=== PATIENT | male | born 1985 | race Asian ===

== ENCOUNTER 2020-04-09 08:43 | Emergency (ER) | payer OTHER ==
[~2020-04-09] VITALS: Ht 170.2 cm; Wt 83.6 kg
[2020-04-09] MEDS ORDERED: POLY15DR27 OS (09:29)
[2020-04-09] MEDS ORDERED: PRED-220 PO (09:29)
--- NOTE | 2020-04-09 09:29 | PHYS DOC ---
Past History Past Medical History: No Pertinent History Alcohol Use: None General Adult EDM: Chief Complaint: FACE PROBLEM HPI: HPI: 35-year-old male with no significant past medical history presents to the ED with complaints of pain behind his left ear that started 3 days ago, noticed of left-sided facial droop 2 days ago, c/o dry left eye. Denies any known outdoor, wooded exposure. No history of tick bites or an associated rash. No recent uri, shingles, fever blisters/cold sores. No new medications (takes no meds). Review of Systems: Review of Systems: Constitutional: Denies fever or chills Eyes: Denies change in visual acuity or vision loss HENT: Denies nasal congestion or sore throat or otorrhea or hearing changes Respiratory: Denies cough or shortness of breath Cardiovascular: Denies chest pain or edema GI: Denies abdominal pain, nausea, vomiting, bloody stools or diarrhea : Denies dysuria or dysuria Musculoskeletal: Denies back pain or joint pain Integument: Denies rash or crepitus Neurologic: Denies headache, focal weakness or sensory changes Endocrine: Denies polyuria or polydipsia Lymphatic: Denies swollen glands Psychiatric: Denies depression or anxiety Allergies: Allergies: Allergies Coded Allergies Type Severity Reaction Last Updated Verified No Known Drug Allergies 04/09/20 No Physical Exam: PE: Constitutional: Well developed, well nourished, no acute distress, non-toxic appearance. HENT: Normocephalic, atraumatic, bilateral normal external ears, bilateral normal tympanic membranes, no hemotympanum or ear effusion, no vesicular rash, no pharyngeal erythema or exudates, entire left facial paralysis including forehead, able to blink but is weak on left eye Eyes: PERRLA, EOMI (no abducens nerve deficit), conjunctiva normal, no discharge. Neck: Normal range of motion, supple, Cardiovascular: S1/2 present, regular rhythm Lungs & Thorax: Speaking in full sentences, bilateral equal chest rise, no tachypnea or increased work of breathing Abdomen: soft, no tenderness, Skin: Warm, dry, no erythema, no rash. [] Back: No midline tenderness, no CVA tenderness. [] Extremities: No tenderness, no cyanosis, no lower extremity edema Neurologic: Alert and oriented X 3, normal motor function, normal sensory function, no nuchal rigidity or meningismus Psychologic: Affect normal, judgement normal, mood normal. [] Current Patient Data: Vital Signs: Vital Signs Date Time Temp Pulse Resp B/P (MAP) Pulse Ox O2 Delivery O2 Flow Rate FiO2 04/09/20 09:00 98.1 83 16 134/96 (109) 96 Room Air EKG: EKG: [] Radiology/Procedures: Radiology/Procedures: [] Heart Score: Risk Factors: Risk Factors: DM, Current or recent (<one month) smoker, HTN, HLP, family history of CAD, obesity. Risk Scores: Score 0 - 3: 2.5% MACE over next 6 weeks - Discharge Home Score 4 - 6: 20.3% MACE over next 6 weeks - Admit for Clinical Observation Score 7 - 10: 72.7% MACE over next 6 weeks - Early Invasive Strategies Course & Med Decision Making: Course & Med Decision Making Pertinent Labs and Imaging studies reviewed. (See chart for details) Concern for bells palsy, unclear etiology. Will discharge home with strict ED return precautions were given for fever, headache, nuchal rigidity or worsening neurologic deficits. Encouraged urgent outpatient follow-up with PMD and ophthalmology in 1 week, consider neurology at 3 months if facial droop has not resolved. Life-threatening processes were considered but are low suspicion at this time, given history, physical exam and ED workup. Pt was educated on all prescription medications and adverse effects. All patient's questions were answered and pt was stable at time of discharge. Life/limb-threatening differential includes but is not limited to, auricular hematoma or perichondritis, malignant otitis externa, otitis externa or media, otomycosis, bullous myringitis, mastoiditis, hearing loss or vestibular disorder, tympanic membrane rupture/perforation/barotrauma, herpes zoster oticus, contact dermatitis, cholesteatoma, meningitis, brain abscess or venous/cavernous/cerebral sinus thrombosis. I spoken with the patient and her caregivers. I explained the patient's condition, diagnoses and treatment plan based on the information available to me at this time. I have answered the patient and her caregiver's questions and addressed any concerns. The patient and her caregivers have a good understanding of patient's diagnosis, condition and treatment plan as can be exp ected at this point. Vital signs have been stable. Patient's condition is stable and appropriate for discharge from the emergency department. Patient will pursue further outpatient evaluation with primary care physician or other designated or consulting physician as outlined in the discharge instructions. The patient and/or caregivers are agreeable to this plan of care and follow-up instructions have been explained in detail. The patient and/or caregivers have received these instructions in written form and have expressed an understanding of the discharge instructions. The patient and/or caregivers are aware that any significant change of condition or worsening of symptoms should prompt immediate return to this or the closest emergency department or c all to [facility]. Garcia Disclaimer: Garcia Disclaimer: This electronic medical record was generated, in whole or in part, using a voice recognition dictation system. Departure Departure: Impression: Primary Impression: Martinez's palsy Disposition: 01 DC HOME SELF CARE/HOMELESS Condition: STABLE Referrals: NON,STAFF (PCP) FOLLOW UP WITH FAMILY MEDICINE: [facility], [facility] [address] [facility] [address] [place] [address] OR [facility] [address] [place] [address], [facility] Instructions: Martinez's Palsy Additional Instructions: FOLLOW UP WITH OPTHALMOLOGY: IN 1 WEEK Ophthalmology [facility], [place] Address: [address] [facility], [facility] [address] [place] [address] FOLLOW UP WITH NEUROLOGY: IN 3 MONTHS IF FACIAL DROOP PERSISTS Jessie Dash MD [address] [place] [address] [address] [place] [address] OR [address] [place] [address] EMERGENCY DEPARTMENT GENERAL DISCHARGE INSTRUCTIONS Thank you for coming to [facility] (ED) today and trusting us with you care. We trust that you had a positivie experience in our Emergency Department. If you wish to speak to the department management, you may call the director at [phone]. YOUR FOLLOW UP INSTRUCTIONS ARE FOLLOWS: 1. Do you have a private Doctor? If you do not have a private doctor, please ask for a resource list of physicians or clinics that may be able to assist you with follow up care. 2. The Emergency Physician has interpreted your x-rays. The X-Ray specialist will also review them. If there is a change in the findings, you will be notified in 48 hours when at all possible. 3. A lab test or culture has been done, your results will be reviewed and you will be notified if you need a change in treatment. ADDITIONAL INSTRUCTIONS AND INFORMATION: 1. Your care today has been supervised by a physician who is specially trained in emergency care. Many problems require more than one evaluation for a complete diagnosis and treatment. We recommend that you schedule your follow up appointment as recommended to ensure complete treatment of you illness or injury. If you are unable to obtain follow up care and continue to have a problem, or if your condition worsens, we recommend that you return to the ED. 2. We are not able to safely determine your condition over the phone nor are we able to give sound medical advice over the phone. For these safety reasons, if you call for medical advice we will ask you to come to the ED for further evaluation. 3. If you have any questions regarding these discharge instructions please call the ED at [phone]. SAFETY INFORMATION: In the interest of safety, wellness, and injury prevention; we encourage you to wear your sealbelt, if you smoke; quite smoking, and we encourage family to use a protective helmet for bicycling and other sporting events that present an increased risk for head injury. IF YOUR SYMPTOMS WORSEN OR NEW SYMPTOMS DEVELOP, OR YOU HAVE CONCERNS ABOUT YOUR CONDITION; OR IF YOUR CONDITION WORSENS WHILE YOU ARE WAITING FOR YOUR FOLLOW UP APPOINTMENT; EITHER CONTACT YOUR PRIMARY CARE DOCTOR, THE PHYSICIAN WHOSE NAME AND NUMBER YOU WERE Lilliana HITCHCOCK, OR RETURN TO THE ED IMMEDIATELY. Scripts Prednisone (PREDNISONE) 10 Mg Tablet 60 MG PO DAILY for contact dermatitis for 7 Days, #42 TAB Prov: SAMIA RODRIGUEZ DO 04/09/20 Polyvinyl Alcohol (ARTIFICIAL TEARS) 15 Ml Drops 1 DROP OS hourly for while awake for 20 Days, #15 ML 0 Refills Prov: SAMIA RODRIGUEZ DO 04/09/20 SAMIA RODRIGUEZ DO Apr 09, 2020 09:29
[2020-04-09 09:30] VITALS: BP 126/79
== END 2020-04-09 09:59 | disposition home or self-care (01) ==
LOC: ER 08:43
DX: G51.0 Bell's palsy (principal); H92.02 Otalgia, left ear
CPT/HCPCS: 99283